=== PATIENT | male | born 1990 | race Caucasian/White ===

== ENCOUNTER 2020-05-23 15:39 | Emergency (ER) | payer OTHER | END 2020-05-23 16:12 | disposition home or self-care (01) | LOC: JVIRT 15:39 | DX: Z03.818 Encounter for observation for suspected exposure to other biological agents ruled out (principal) | CPT/HCPCS: C9803; Q3014-GT; U0003 ==

== ENCOUNTER 2021-05-28 09:32 | Emergency (ER) | payer OTHER | END 2021-05-28 10:02 | disposition home or self-care (01) | LOC: JVIRT 09:32 | DX: Z20.822 Contact with and (suspected) exposure to COVID-19 (principal) | CPT/HCPCS: C9803; Q3014-GT; U0003; U0005 ==

== ENCOUNTER 2021-11-24 07:30 | Inpatient (IN) | payer OTHER ==
[2021-11-24 07:35] VITALS: BMI 29.0
[2021-11-24 08:49] LABS: BASO % 0.2 % (0-2.0); EOS % 0.4 % (0-4.5); HEMATOCRIT 42.1 % (35.4-49); HEMOGLOBIN 14.3 GM/dL (11.7-16.9); LYMPH % 13.7 % (8-40); MEAN CELL VOLUME 85.3 fl (80-96); MEAN PLT VOLUME 7.9 fl (7.5-11.1); MONO % 7.6 % (3.8-10.2); NEUT % 78.1 % (42.8-82.8); PLATELET COUNT 279 10^3/uL (134-434); RBC 4.93 M/mm3 (4.00-5.60); RDW 12.7 % (11.9-15.9); WHITE BLOOD COUNT 8.4 K/mm3 (4.0-10.0)
[2021-11-24] MEDS ORDERED: VANCOMYCIN 1 GM in D5W (PRE-DOCKED) 1,000 MG/250 ML IVPB ONE (08:55)
[2021-11-24 08:56] LABS: INR 1.1 (0.83-1.09); PROTHROMBIN TIME (PATIENT) 12.7 SEC (9.7-13.0)
[2021-11-24 08:58] LABS: ACTIVATED PTT 34.5 SECONDS (25.2-36.5)
[2021-11-24 09:10] LABS: ALBUMIN 4.5 g/dl (3.4-5.0); CALCIUM 9.6 mg/dL (8.5-10.1)
[2021-11-24 09:11] LABS: BLOOD UREA NITROGEN 12.8 mg/dL (7-18)
[2021-11-24 09:14] LABS: CREATININE 0.9 mg/dL (0.55-1.3)
[2021-11-24 09:15] LABS: BILIRUBIN,TOTAL 0.5 mg/dL (0.2-1); TOT PROT 7.3 g/dl (6.4-8.2)
[2021-11-24] MEDS ORDERED: VANCOMYCIN 1 GRAM (PRE-DOCKED) 1,000 MG/250 ML BAG IVPB ONE (09:18)
[2021-11-24] MEDS ORDERED: LIDOCAINE HCL 1%, 10 MG/ML (20ML VIAL) ONE (14:20)
[2021-11-24] MEDS ORDERED: LIDOCAINE HCL/PF 2% SDV 5ML VIAL ONE (14:29)
[2021-11-24] MEDS ORDERED: DEXAMETHASONE SOD PHOSPHATE 4 MG/1 ML VIAL ONE (14:29)
[2021-11-24] MEDS ORDERED: FENTANYL CITRATE/PF 50 MCG/ML VIAL ONE ×3 (14:29→15:05)
[2021-11-24] MEDS ORDERED: ROCURONIUM BROMIDE 50 MG/5 ML SYRINGE ONE (14:30)
[2021-11-24] MEDS ORDERED: PROPOFOL 20 ML ONE ×2 (14:30→14:38)
[2021-11-24] MEDS ORDERED: MIDAZOLAM HCL 2 MG/2 ML SINGLE DOSE VIAL ONE (14:30)
[2021-11-24] MEDS ORDERED: ACETAMINOPHEN 325 MG TABLET (FP) PO PRN (14:33)
[2021-11-24] MEDS ORDERED: BUPIVACAINE HCL/PF 0.5% (5MG/ML) 10 ML VIAL IJ ONE (14:44)
[2021-11-24] MEDS ORDERED: LIDOCAINE HCL 1%, 10 MG/ML (20ML VIAL) NR ONE (14:44)
[2021-11-24] MEDS ORDERED: ONDANSETRON 4 MG/2 ML VIAL IVPUSH PRN (14:45)
[2021-11-24] MEDS ORDERED: LACTATED RINGERS SOLUTION 1,000 ML IV SCH (14:45)
[2021-11-24] MEDS ORDERED: GLYCOPYRROLATE 0.2 MG/1 ML VIAL ONE (15:14)
[2021-11-24] MEDS ORDERED: NEOSTIGMINE METHYLSULFATE 0.5 MG/ML - 10 ML MDV ONE (15:14)
[2021-11-24] MEDS ORDERED: KETOROLAC TROMETHAMINE 30 MG/1 ML VIAL ONE (15:14)
[2021-11-24] MEDS: CLINDAMYCIN 600MG PREMIX IVPB 600 MG/50 ML BAG IVPB SCH (17:35)
[2021-11-24] MEDS ORDERED: MELATONIN 5 MG TABLETS PO PRN (18:18)
[2021-11-24] MEDS: diphenhydrAMINE HCL 25 MG CAPSULE (FP) PO PRN (20:59)
[2021-11-25] MEDS: CLINDAMYCIN 600MG PREMIX IVPB 600 MG/50 ML BAG IVPB SCH ×3 (01:20→17:24)
[2021-11-25] MEDS: diphenhydrAMINE HCL 25 MG CAPSULE (FP) PO PRN (22:00)
[2021-11-26] MEDS: CLINDAMYCIN 600MG PREMIX IVPB 600 MG/50 ML BAG IVPB SCH ×2 (02:57→08:55)
[2021-11-26 10:10] LABS: BASO % 0.4 % (0-2.0); HEMATOCRIT 37.5 % (35.4-49); HEMOGLOBIN 12.4 GM/dL (11.7-16.9); LYMPH % 22.8 % (8-40); MCH 28.9 pg (25.7-33.7); MCHC 33.2 g/dl (32.0-35.9); MEAN PLT VOLUME 8.5 fl (7.5-11.1); MONO % 8.5 % (3.8-10.2); NEUT % 67.3 % (42.8-82.8); PLATELET COUNT 229 10^3/uL (134-434); RBC 4.31 M/mm3 (4.00-5.60); RDW 12.8 % (11.9-15.9); WHITE BLOOD COUNT 7.4 K/mm3 (4.0-10.0)
[2021-11-26 10:11] LABS: BLOOD UREA NITROGEN 8.9 mg/dL (7-18)
[2021-11-26 10:12] LABS: CALCIUM 8.7 mg/dL (8.5-10.1)
[2021-11-26 10:15] LABS: CREATININE 0.8 mg/dL (0.55-1.3)
[2021-11-26 12:03] VITALS: BP 104/66; PULSE 59; TEMP 98.3
== END 2021-11-26 12:57 | disposition home or self-care (01) | DRG 572 ==
LOC: JER 07:30 → SUATTDRO 09:07 → JASUSAT 09:07 → J8W 16:45 → JASUSAT 11-25 19:32 → J8W 11-25 19:33
PROC: 2W14X6Z Compression of Chest Wall using Pressure Dressing (ICD-10-PCS; 2021-11-24)
PROC: 0JB60ZZ Excision of Chest Subcutaneous Tissue and Fascia, Open Approach (ICD-10-PCS; principal; 2021-11-24 14:30)
DX: L02.213 Cutaneous abscess of chest wall (principal); L72.3 Sebaceous cyst
CPT/HCPCS: 36415; 80048; 80053; 85025; 85610; 85730; 86850; 86900; 86901; 87040; 87070; 87077; 87186; 87205; 88304-TC; 93005; 93010; 94760; 99285-25; C9803-CS; U0003; U0005

== ENCOUNTER 2021-12-16 04:05 | Day surgery (SDC) | payer OTHER ==
[2021-12-15 13:41] VITALS: BMI 29.0
[~2021-12-16 04:05] MED LIST: LIDOCAINE 1%/EPI 1:100000 (20 ML MULTI DOSE VIAL) IJ ONE
[2021-12-16] MEDS ORDERED: LIDOCAINE 1%/EPI 1:100000 (20 ML MULTI DOSE VIAL) ONE (09:57)
[2021-12-16] MEDS ORDERED: PROPOFOL 20 ML ONE (10:12)
[2021-12-16] MEDS ORDERED: LIDOCAINE HCL/PF 2% SDV 5ML VIAL ONE (10:12)
[2021-12-16] MEDS ORDERED: MIDAZOLAM HCL 2 MG/2 ML SINGLE DOSE VIAL ONE (10:13)
[2021-12-16] MEDS ORDERED: BUPIVACAINE HCL/PF 0.5% (5MG/ML) 10 ML VIAL ONE (10:19)
[2021-12-16] MEDS ORDERED: ceFAZolin SODIUM 1 GM VIAL ONE (10:43)
[2021-12-16] MEDS ORDERED: ceFAZolin SODIUM 1 GM VIAL IVPB ONE (10:45)
[2021-12-16] MEDS ORDERED: BACITRACIN 15 GM TUBE TOPICAL OINTMENT ONE (11:27)
[2021-12-16] MEDS ORDERED: LIDOCAINE 1%/EPI 1:100000 (20 ML MULTI DOSE VIAL) IJ ONE (11:32)
[2021-12-16] MEDS ORDERED: BUPIVACAINE HCL/PF 0.5% (5MG/ML) 10 ML VIAL IJ ONE (11:32)
[2021-12-16] MEDS ORDERED: FENTANYL CITRATE/PF 50 MCG/ML VIAL ONE (12:13)
[2021-12-16] MEDS ORDERED: ACETAMINOPHEN 325 MG TABLET (FP) PO ONE ×2 (12:15)
[2021-12-16] MEDS ORDERED: ACETAMINOPHEN 325 MG TABLET (FP) ONE (12:35)
[2021-12-16] MEDS ORDERED: oxyCODONE HCL 5 MG TABLET PO PRN ×2 (12:50)
[2021-12-16] MEDS ORDERED: ONDANSETRON 4 MG/2 ML VIAL IVPUSH PRN (12:50)
[2021-12-16] MEDS ORDERED: LACTATED RINGERS SOLUTION 1,000 ML IV SCH (13:00)
[2021-12-16 14:14] VITALS: PULSE 74
[2021-12-16 14:17] VITALS: BP 129/74; TEMP 98.7
== END 2021-12-16 14:00 | disposition home or self-care (01) ==
LOC: JASU-SURG 04:05
PROVIDERS: ATTEND Plastic Surgery
PROC: 0HB8XZZ Excision of Buttock Skin, External Approach (ICD-10-PCS; 2021-12-16)
PROC: 0HR5X74 Replacement of Chest Skin with Autologous Tissue Substitute, Partial Thickness, External Approach (ICD-10-PCS; principal; 2021-12-16 10:30)
DX: Z48.1 Encounter for planned postprocedural wound closure (principal)
CPT/HCPCS: 87070; 87205; 88304-TC; 94760